=== PATIENT | female | born 1985 | race American Indian/Alaskan Native ===

== ENCOUNTER 2017-10-10 11:36 | Emergency (ER) | payer SELFPAY ==
[2017-10-10 11:55] VITALS: BP 162/98
[2017-10-10 13:26] LABS: Bilirubin,Urine NEG (Negative); Blood,Urine NEG (Negative); Color,Urine Yellow (Yellow); Hyaline Casts,Urine 1 /LPF; Mucus,Urine FEW /HPF; Protein,Urine <15 mg/dL mg/dL (Negative); Urobilinogen,Urine < 2.0 mg/dL (<2.0)
[2017-10-10 13:29] LABS: HCG Qualitative,Urine Negative (Negative)
== END 2017-10-10 14:57 | disposition left against medical advice (07) ==
LOC: ED 11:36
DX: R10.9 Unspecified abdominal pain (principal); Z53.21 Procedure and treatment not carried out due to patient leaving prior to being seen by health care provider
CPT/HCPCS: 81001; 81025; 82962